=== PATIENT | female | born 1995 | race Caucasian/White ===

== ENCOUNTER 2018-05-12 19:15 | Emergency (ER) | payer OTHER ==
[~2018-05-12] VITALS: Ht 162.6 cm; Wt 63.5 kg
[~2018-05-12 19:15] MED LIST: MACROBID 100 M100 MG PO; PYRIDIUM200 MG PO
== END 2018-05-12 22:10 | disposition home or self-care (01) ==
LOC: ED 19:15
DX: S16.1XXA Strain of muscle, fascia and tendon at neck level, initial encounter (principal); S00.93XA Contusion of unspecified part of head, initial encounter; S70.312A Abrasion, left thigh, initial encounter; Z88.2 Allergy status to sulfonamides; V80.010A Animal-rider injured by fall from or being thrown from horse in noncollision accident, initial encounter
CPT/HCPCS: 70450; 72125; 99283-25

== ENCOUNTER 2021-02-09 16:44 | Emergency (ER) | payer OTHER, BC ==
[~2021-02-09] VITALS: Ht 162.6 cm; Wt 63.5 kg
[~2021-02-09 16:44] MED LIST changes: +CLARITIN10 MG PO
== END 2021-02-09 17:41 | disposition home or self-care (01) ==
LOC: ED 16:44
DX: S61.211A Laceration without foreign body of left index finger without damage to nail, initial encounter (principal); Z88.2 Allergy status to sulfonamides; Z79.899 Other long term (current) drug therapy; W26.0XXA Contact with knife, initial encounter
CPT/HCPCS: 99282